=== PATIENT | female | born 1940 | race Caucasian/White ===

== ENCOUNTER 2018-07-10 13:49 | Emergency (ER) | payer MEDICARE ==
[2018-07-10] MEDS ORDERED: Aspirin 81 MG Tab.Chew PO ONE (14:11)
--- NOTE | 2018-07-10 14:16 | EDM.PDOC ---
ED HPI GENERAL MEDICAL PROBLEM - General Chief Complaint: General Stated Complaint: STROKE? Time Seen by Provider: 07/10/18 14:00 Source of Information: Reports: Patient, Family, Police History Limitations: Reports: No Limitations - History of Present Illness INITIAL COMMENTS - FREE TEXT/NARRATIVE: 78 yo female presents with her for several episodes of difficulty with speech and trouble walking. Speech problem is resolved on arrival, but still having some trouble with walking. Had a similar problem in and was seen in [facility] and her work up at that time was negative. Is on a baby aspirin daily which she already took today. Has been more tired today than usual, hasn't eaten. Just wants to go back to bed. Onset: Sudden Onset Date: 07/10/18 Duration: Intermittent, Waxing/Waning Quality: Reports: Other (no pain) Severity: Mild Improves with: Reports: Other (? time) Worsens with: Reports: Other (unknown) Context: Reports: Other (See HPI) Associated Symptoms: Reports: No Other Symptoms. 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: Other (see below) (none) - Related Data Allergies Allergy/AdvReac Type Severity Reaction Status Date / Time Sulfa (Sulfonamide Allergy Nausea Verified 07/10/18 14:08 Antibiotics) Home Meds: Home Meds Aspirin 81 mg PO DAILY 01/29/18 [History] Levothyroxine [Synthroid] 50 mcg PO DAILY 01/29/18 [History] Meclizine [Antivert] 25 mg PO Q6H PRN #30 tab 01/29/18 [Rx] Past Medical History Endocrine/Metabolic History: Reports: Hypoparathyroidism - Past Surgical History HEENT Surgical History: Reports: Tonsillectomy Female Surgical History: Reports: Hysterectomy Social & Family History - Tobacco Use Smoking Status *Q: Never Smoker Second Hand Smoke Exposure: No - Caffeine Use Caffeine Use: Reports: Tea - Recreational Drug Use Recreational Drug Use: No ED ROS GENERAL - Review of Systems Review Of Systems: See Below Constitutional: Reports: No Symptoms HEENT: Reports: No Symptoms Respiratory: Reports: No Symptoms Cardiovascular: Reports: No Symptoms GI/Abdominal: Reports: No Symptoms : Reports: No Symptoms Musculoskeletal: Reports: No Symptoms Skin: Reports: No Symptoms Neurological: Reports: Difficulty Walking, Change in Speech (hard to get the right words out at home, better now. About 3 separate episodes of this today.) ED EXAM, GENERAL - Physical Exam Exam: See Below Exam Limited By: No Limitations General Appearance: Alert, WD/WN, No Apparent Distress Eye Exam: Bilateral Eye: EOMI, Normal Inspection, PERRL Ears: Normal External Exam, Normal Canal, Hearing Grossly Normal, Normal TMs Ear Exam: Bilateral Ear: Auricle Normal, Canal Normal, TM normal Nose: Normal Inspection, Normal Mucosa, No Blood Throat/Mouth: Normal Inspection, Normal Lips, Normal Oropharynx, Normal Voice, No Airway Compromise Head: Atraumatic, Normocephalic Neck: Normal Inspection Respiratory/Chest: No Respiratory Distress, Lungs Clear, Normal Breath Sounds, No Accessory Muscle Use Cardiovascular: Regular Rate, Rhythm, No Edema GI/Abdominal: Normal Bowel Sounds, Soft, Non-Tender, No Distention Back Exam: Normal Inspection. No: CVA Tenderness (R), CVA Tenderness (L) Extremities: Normal Inspection, Normal Range of Motion, Non-Tender, No Pedal Edema Neurological: Alert, Oriented, CN II-XII Intact, Normal Cognition, No Motor/ Sensory Deficits. No: Confused Psychiatric: Normal Affect, Normal Mood Skin Exam: Warm, Dry, Intact, Normal Color, No Rash Course - Vital Signs Text/Narrative:: No return of sx's during her ER stay. Feeling fine. Wants to go home and follow up with neuro as outpatient. Last Recorded V/S: Last Vital Signs Temp 37.6 C 07/10/18 14:07 Pulse 76 07/10/18 16:26 Resp 16 07/10/18 16:26 BP 127/67 07/10/18 16:26 Pulse Ox 96 07/10/18 16:26 - Orders/Labs/Meds Orders: Active Orders 24 hr Category Date Time Status Cardiac Monitoring [RC] .As Directed Care 07/10/18 14:09 Active Labs: Laboratory Tests 07/10/18 07/10/18 07/10/18 Range/Units 14:22 14:22 14:32 WBC 7.7 (4.5-11.0) K/uL RBC 4.03 (3.30-5.50) M/uL Hgb 11.6 L (12.0-15.0) g/dL Hct 35.7 L (36.0-48.0) % MCV 89 (80-98) fL MCH 29 (27-31) pg MCHC 33 (32-36) % Plt Count 236 (150-400) K/uL Sodium 127 L (140-148) mmol/L Potassium 3.9 (3.6-5.2) mmol/L Chloride 94 L (100-108) mmol/L Carbon Dioxide 23 (21-32) mmol/L Anion Gap 13.9 (5.0-14.0) mmol/L BUN 17 (7-18) mg/dL Creatinine 1.0 (0.6-1.0) mg/dL Est Cr Clr Drug Dosing 37.73 mL/min Estimated GFR (MDRD) 53 L (>60) Glucose 121 H (74-106) mg/dL Calcium 9.1 (8.5-10.1) mg/dL Troponin I < 0.017 (0.000-0.056) ng/mL TSH, Ultra Sensitive 0.833 (0.358-3.740) uIU/mL Urine Color Yellow Urine Appearance Slightly cloudy Urine pH 6.0 (4.5-8.0) Ur Specific [place] 1.015 (1.008-1.030) Urine Protein Trace (NEGATIVE) mg/dL Urine Glucose (UA) Normal (NEGATIVE) mg/dL Urine Ketones Negative (NEGATIVE) mg/dL Urine Occult Blood Trace (NEGATIVE) Urine Nitrite Negative (NEGATIVE) Urine Bilirubin Negative (NEGATIVE) Urine Urobilinogen Normal (NORMAL) mg/dL Ur Leukocyte Esterase Trace (NEGATIVE) Urine RBC 0-5 (0-5) Urine WBC 0-5 (0-5) Ur Epithelial Cells Few Amorphous Sediment Not seen Urine Bacteria Moderate Urine Mucus Not seen Meds: Medications Discontinued Medications Generic Name Dose Route Start Last Admin Trade Name Freq PRN Reason Stop Dose Admin Aspirin 243 mg 07/10/18 14:11 07/10/18 14:16 Aspirin PO 07/10/18 14:12 243 mg ONETIME ONE Administration Sodium Chloride 500 mls @ 1,000 mls/hr 07/10/18 15:11 07/10/18 15:23 Normal Saline IV 07/10/18 15:40 1,000 mls/hr .BOLUS ONE Administration Sodium Chloride 500 mls @ 1,000 mls/hr 07/10/18 15:58 07/10/18 16:11 Normal Saline IV 07/10/18 16:27 1,000 mls/hr .BOLUS ONE Administration - Radiology Interpretation Free Text/Narrative:: head CT-Neg. CT Results Date: 07/10/18 Departure - Departure Time of Disposition: 16:28 Disposition: Home, Self-Care 01 Condition: Fair Clinical Impression: TIA (transient ischemic attack), Hyponatremia - Discharge Information *PRESCRIPTION DRUG MONITORING PROGRAM REVIEWED*: No *COPY OF PRESCRIPTION DRUG MONITORING REPORT IN PATIENT COLT: No Instructions: Transient Ischemic Attack, [id number] Referrals: Larissa Solitario PA [Primary Care Provider] - Forms: ED Department Discharge Additional Instructions: Increase your aspirin to 325 mg daily with a meal. Decrease your daily water intake slightly. F/U with neurology as soon as you can get scheduled. Return here promptly if your problem recurs. - My Orders Last 24 Hours: My Active Orders 07/10/18 14:09 Cardiac Monitoring [RC] .As Directed - Assessment/Plan Last 24 Hours: My Active Orders 07/10/18 14:09 Cardiac Monitoring [RC] .As Directed
[2018-07-10] MEDS ORDERED: Sodium Chloride 0.9% 500 ML IV ONE ×2 (15:11→15:58)
--- NOTE | 2018-07-10 15:11 | CRLCT ---
INDICATION: Difficulty with speech, poor balance TECHNIQUE: CT Head without contrast. COMPARISON: None FINDINGS: Ventricles and sulci are normal in size and configuration. No extra axial collection. No intracranial hemorrhage. No mass effect or edema. There are basal ganglia calcifications. No CT evidence of acute, large territorial infarction. Vascular calcifications of the skullbase. Visualized paranasal sinuses and mastoid air cells are well aerated. Calvarium is unremarkable. IMPRESSION: 1. No intracranial hemorrhage or mass effect. 2. No CT evidence of acute, large territorial infarction. There is clinical concern for stroke, please note that MRI is more sensitive. Dictated by Samia Wiggins MD @ 07/10/2018 3:09:24 PM Please note that all CT scans at this facility use dose modulation, iterative reconstruction, and/or weight-based dosing when appropriate to reduce radiation dose to as low as reasonably achievable. Dictated by: Samia Wiggins MD @ 07/10/2018 15:09:32 (Electronically Signed)
== END 2018-07-10 16:41 | disposition home or self-care (01) ==
LOC: JP.ED 13:49
DX: G45.9 Transient cerebral ischemic attack, unspecified (principal); E87.1 Hypo-osmolality and hyponatremia; Z88.2 Allergy status to sulfonamides
CPT/HCPCS: 36415; 70450; 80048; 81001; 84443; 84484; 85027; 96360; 99285; A9270; J7040; 99284

== ENCOUNTER 2019-10-31 05:39 | Emergency (ER) | payer MEDICARE ==
[2019-10-31] MEDS ORDERED: Aspirin 81 MG Tab.Chew PO ONE (05:57)
[2019-10-31] MEDS ORDERED: LORazepam 1 MG Tab PO ONE (05:59)
--- NOTE | 2019-10-31 06:04 | EDM.PDOC ---
ED HPI GENERAL MEDICAL PROBLEM - General Chief Complaint: Chest Pain Stated Complaint: CHEST PAIN Time Seen by Provider: 10/31/19 05:57 Source of Information: Reports: Patient, Family, RN Notes Reviewed History Limitations: Reports: No Limitations - History of Present Illness INITIAL COMMENTS - FREE TEXT/NARRATIVE: 79-year-old female presents emergency department a complaint of chest pain, she has had chest pain now for a week comes and goes she describes it as sharp stabbing zingers in the left breast they will occur multiple times throughout the day she had a couple early this morning decided to come to the emergency department to get it checked out. She has no nausea no vomiting no shortness of breath no diaphoresis she does have a strong family history of coronary artery disease no tobacco use denies pain Pain Score (Numeric/FACES): 0 - Related Data Allergies Allergy/AdvReac Type Severity Reaction Status Date / Time Sulfa (Sulfonamide Allergy Nausea Verified 10/31/19 05:46 Antibiotics) Home Meds: Home Meds Aspirin 81 mg PO DAILY 01/29/18 [History] Levothyroxine [Synthroid] 50 mcg PO DAILY 01/29/18 [History] Meclizine [Antivert] 25 mg PO Q6H PRN #30 tab 01/29/18 [Rx] Levothyroxine 75 mcg PO ASDIRECTED 10/31/19 [History] Past Medical History HEENT History: Reports: 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: Endocrine/Metabolic History: Reports: Hypoparathyroidism - Infectious Disease History Infectious Disease History: Reports: Chicken Pox, Measles - Past Surgical History HEENT Surgical History: Reports: Tonsillectomy Female Surgical History: Reports: Hysterectomy Social & Family History - Caffeine Use Caffeine Use: Reports: Tea ED ROS GENERAL - Review of Systems Review Of Systems: See Below Constitutional: Reports: No Symptoms HEENT: Reports: No Symptoms Respiratory: Reports: No Symptoms Cardiovascular: Reports: Chest Pain GI/Abdominal: Reports: No Symptoms : Reports: No Symptoms Musculoskeletal: Reports: No Symptoms Skin: Reports: No Symptoms Neurological: Reports: No Symptoms ED EXAM, GENERAL - Physical Exam Exam: See Below Exam Limited By: No Limitations General Appearance: Alert, WD/WN, No Apparent Distress Neck: Normal Inspection, Supple, Non-Tender, Full Range of Motion Respiratory/Chest: No Respiratory Distress, Lungs Clear, Normal Breath Sounds, No Accessory Muscle Use, Chest Non-Tender Cardiovascular: Regular Rate, Rhythm, No Murmur GI/Abdominal: Soft, Non-Tender Extremities: No Pedal Edema Course - Vital Signs Last Recorded V/S: Last Vital Signs Temp 98.0 F 10/31/19 05:51 Pulse 67 10/31/19 05:51 Resp 16 10/31/19 05:51 BP 202/96 H 10/31/19 05:51 Pulse Ox 99 10/31/19 05:51 - Orders/Labs/Meds Orders: Active Orders 24 hr Category Date Time Status Cardiac Monitoring [RC] .As Directed Care 10/31/19 05:58 Active EKG Documentation Completion [RC] ASDIRECTED Care 10/31/19 05:59 Active Chest 1V Frontal [CR] Stat Exams 10/31/19 05:58 Taken EKG 12 Lead [EK] Stat Ther 10/31/19 05:58 Ordered Labs: Laboratory Tests 10/31/19 10/31/19 Range/Units 06:05 06:05 WBC 3.6 L (4.5-11.0) K/uL RBC 4.20 (3.30-5.50) M/uL Hgb 12.3 (12.0-15.0) g/dL Hct 36.7 (36.0-48.0) % MCV 87 (80-98) fL MCH 29 (27-31) pg MCHC 34 (32-36) % Plt Count 236 (150-400) K/uL Neut % (Auto) 40 (36-66) % Lymph % (Auto) 38 (24-44) % [place] % (Auto) 16 H (2-6) % Eos % (Auto) 6 H (2-4) % Baso % (Auto) 1 (0-1) % Sodium 133 L (140-148) mmol/L Potassium 4.3 (3.6-5.2) mmol/L Chloride 99 L (100-108) mmol/L Carbon Dioxide 26 (21-32) mmol/L Anion Gap 12.3 (5.0-14.0) mmol/L BUN 10 (7-18) mg/dL Creatinine 0.8 (0.6-1.0) mg/dL Est Cr Clr Drug Dosing 46.40 mL/min Estimated GFR (MDRD) > 60 (>60) Glucose 96 (74-106) mg/dL Calcium 8.9 (8.5-10.1) mg/dL Total Bilirubin 0.4 (0.2-1.0) mg/dL AST 26 (15-37) U/L ALT 28 (12-78) U/L Alkaline Phosphatase 63 (46-116) U/L Troponin I 0.017 (0.000-0.056) ng/mL Total Protein 6.7 (6.4-8.2) g/dL Albumin 3.5 (3.4-5.0) g/dL Globulin 3.2 (2.3-3.5) g/dL Albumin/Globulin Ratio 1.1 L (1.2-2.2) Meds: Medications Discontinued Medications Generic Name Dose Route Start Last Admin Trade Name Freq PRN Reason Stop Dose Admin Aspirin 324 mg 10/31/19 05:57 10/31/19 06:11 Aspirin PO 10/31/19 05:58 324 mg ONETIME ONE Administration Lorazepam 1 mg 10/31/19 05:59 10/31/19 06:12 Ativan PO 10/31/19 06:00 1 mg ONETIME ONE Administration Departure - Departure Time of Disposition: 07:00 Disposition: Home, Self-Care 01 Condition: Fair Clinical Impression: Atypical chest pain Instructions: Nonspecific Chest Pain, Adult Referrals: Larissa Solitario PA [Primary Care Provider] - Forms: ED Department Discharge Additional Instructions: Please follow-up with your primary care this week for further evaluation Sepsis Event Note (ED) - Evaluation Sepsis Screening Result: No Definite Risk - Focused Exam Vital Signs: Vital Signs Temp Pulse Resp BP Pulse Ox 10/31/19 05:51 98.0 F 67 16 202/96 H 99 10/31/19 05:49 98.0 F 67 16 202/96 H 99 - My Orders Last 24 Hours: My Active Orders 10/31/19 05:58 Cardiac Monitoring [RC] .As Directed Chest 1V Frontal [CR] Stat EKG 12 Lead [EK] Stat 10/31/19 05:59 EKG Documentation Completion [RC] ASDIRECTED - Assessment/Plan Last 24 Hours: My Active Orders 10/31/19 05:58 Cardiac Monitoring [RC] .As Directed Chest 1V Frontal [CR] Stat EKG 12 Lead [EK] Stat 10/31/19 05:59 EKG Documentation Completion [RC] ASDIRECTED Plan: Assessment Acuity = acute Site and laterality = atypical chest pain Etiology = unknown Manifestations = none Location of injury = Home Lab values = CBC, CMP, troponin all within normal limits EKG demonstrates normal sinus rhythm chest x-ray I did review films myself I cannot appreciate any acute process, the official read from radiology is pending Plan I did review lab results and chest x-ray with her she remained chest pain-free while in the emergency department will have follow-up with her primary care this week for further evaluation This note was dictated using [employer] voice recognition software please call with any questions on syntax or grammar.
--- NOTE | 2019-10-31 11:44 | CR ---
CHEST: Portable 10/31/2019 at 6:29 AM CLINICAL HISTORY:Chest pain COMPARISON:None FINDINGS: The heart size, pulmonary vascularity and hilar structures are normal. No infiltrate effusion or pneumothorax is seen. There are atherosclerotic changes in the aorta. IMPRESSION: No acute cardiopulmonary process.
== END 2019-10-31 07:26 | disposition home or self-care (01) ==
LOC: JP.ED 05:39
DX: R07.89 Other chest pain (principal); E20.9 Hypoparathyroidism, unspecified; Z88.2 Allergy status to sulfonamides; Z79.82 Long term (current) use of aspirin; Z79.899 Other long term (current) drug therapy
CPT/HCPCS: 36415; 71045; 80053; 84484; 85025; 93005; 99285; A9270; 93010

== ENCOUNTER 2020-02-09 07:12 | Day surgery (SDC) | payer MEDICARE ==
[~2020-02-09 07:12] MED LIST: Sodium Chloride 0.9% 1,000 ML IV SCH
[2020-02-09] MEDS ORDERED: Propofol 200 MG/20 ML SDV ONE (07:21)
[2020-02-09] MEDS ORDERED: fentaNYL 100 MCG/2 ML SDV ONE (07:21)
--- NOTE | 2020-02-10 03:29 | PROC ---
DATE OF PROCEDURE: 02/09/2020 SURGEON: Byron Carrasco MD INDICATIONS: Kenia is an 80-year-old female who had a positive Cologuard test, comes in for a screening colonoscopy. The risks and benefits were explained to the patient. PROCEDURE IN DETAIL: Anesthesia was given by nurse tear down man. Olympus 180L scope was used. The tube was placed into the rectum after examination of the rectum with a gloved finger, which was unremarkable. The tube was advanced and did get to the cecum with external pressure. Upon retraction of the tube, noted no lesions or ulceration, no abnormality. No diverticula throughout the entire colon. Rectal evaluation was unremarkable as well. The tube was removed. The patient tolerated the procedure well. PREOPERATIVE DIAGNOSIS: Positive Cologuard test. POSTOPERATIVE DIAGNOSIS: Normal colon from cecum to the rectum. Byron Carrasco MD /[id number]
== END 2020-02-09 10:45 | disposition home or self-care (01) ==
LOC: JP.SDS 07:12
PROVIDERS: ATTEND Internal Medicine
DX: R19.5 Other fecal abnormalities (principal); Z88.2 Allergy status to sulfonamides; Z88.5 Allergy status to narcotic agent; Z88.8 Allergy status to other drugs, medicaments and biological substances
CPT/HCPCS: J2704; J3010; J7030

== ENCOUNTER 2021-02-07 08:36 | Day surgery (SDC) | payer MEDICARE ==
[~2021-02-07 08:36] MED LIST changes: -Sodium Chloride 0.9% 1,000 ML IV SCH; +Sodium Chloride 0.9% 10 ML Syringe FLUSH PRN
[2021-02-07] MEDS ORDERED: Labetalol 20 MG/4 ML Syringe ONE (09:12)
[2021-02-07] MEDS ORDERED: Sodium Chloride 0.9% 10 ML ONE (09:12)
--- NOTE | 2021-02-07 10:01 | OR ---
DATE OF PROCEDURE: 02/07/2021 SURGEON: Colleen Joseph MD POSTOPERATIVE CARE: Postoperative care will be provided mainly at the [address] [place] [address] [facility] in conjunction with [facility]. PREOPERATIVE DIAGNOSIS: Cataract, right eye. POSTOPERATIVE DIAGNOSIS: Cataract, right eye. PROCEDURE: Phacoemulsification with intraocular lens placement, right eye. ANESTHESIA: Topical and intracameral. ESTIMATED BLOOD LOSS: Minimal. COMPLICATIONS: None. PATHOLOGY SPECIMENS: None. SURGICAL FINDINGS: None. INDICATION FOR PROCEDURE: The patient is an 81-year-old female with history of a visually significant cataract in the right eye, which interfered with activities of daily living. This consisted of a nuclear sclerosis cataract. Following careful discussion of the risks, benefits and alternatives to cataract extraction with intraocular lens placement including blindness and , the patient elected to proceed, and informed, written consent was obtained prior to the procedure. DESCRIPTION OF THE PROCEDURE: The patient was previously identified, and a radha placed above the right eye. All sources, including the patient, indicated that the right eye was the correct eye. The patient was subsequently taken to the operating room where standard monitors were applied. The patient was then prepped and draped in the usual sterile fashion for ophthalmic surgery. Attention was first directed at the 12 o'clock position where a paracentesis port was fashioned. Shugar solution followed by Viscoat was instilled into the eye. Attention was then directed to the 8:30 position where a triplanar incision was made in a near-clear manner using a keratome. A continuous capsulorrhexis was then made using a combination of the cystotome and Utrata forceps. Hydrodissection was achieved using a balanced salt solution, and the lens rotated nicely. Phacoemulsification was then done using a modified [id number]-[id number] technique without complication. Phaco time was 8.02 CDE. The remaining cortex was removed using the irrigation/aspiration handpiece. Provisc was then instilled into the eye. A Technis lens, model DIB00, at 21.0 diopters was then placed in the capsular bag using an [place] injector. The remaining viscoelastic was removed using the irrigation/aspiration forceps. All wounds were then checked and found to be watertight. The lid speculum and drapes were removed. Maxitrol ointment was placed in the patient's right eye, and the eye was shielded. The patient tolerated the procedure well. The patient was instructed to follow up tomorrow. All needle and sponge counts were correct at the end of the procedure. There are no surgical findings. Colleen Joseph MD /[id number]
== END 2021-02-07 09:45 | disposition home or self-care (01) ==
LOC: JP.SDS 08:36
PROVIDERS: ATTEND Ophthalmology
DX: H26.9 Unspecified cataract (principal); I10 Essential (primary) hypertension; K21.9 Gastro-esophageal reflux disease without esophagitis; E03.9 Hypothyroidism, unspecified
CPT/HCPCS: 66984; J3490; V2632

== ENCOUNTER 2021-02-21 06:27 | Day surgery (SDC) | payer MEDICARE ==
[2021-02-21] MEDS ORDERED: Sodium Chloride 0.9% 10 ML Syringe FLUSH PRN (07:00)
--- NOTE | 2021-02-21 10:53 | OR ---
DATE OF PROCEDURE: 02/21/2021 SURGEON: Colleen Joseph MD POSTOPERATIVE CARE: Postoperative care will be provided mainly at the [address] [place] [address] [facility] in conjunction with [facility]. PREOPERATIVE DIAGNOSIS: Cataract, left eye. POSTOPERATIVE DIAGNOSIS: Cataract, left eye. PROCEDURE: Phacoemulsification with intraocular lens placement, left eye. ANESTHESIA: Topical and intracameral. ESTIMATED BLOOD LOSS: Minimal. COMPLICATIONS: None. PATHOLOGY SPECIMENS: None. SURGICAL FINDINGS: None. INDICATION FOR PROCEDURE: The patient is an 81-year-old female with history of a visually significant cataract in the left eye, which interfered with activities of daily living. This consisted of a nuclear sclerosis cataract. Following careful discussion of the risks, benefits and alternatives to cataract extraction with intraocular lens placement including blindness and , the patient elected to proceed, and informed, written consent was obtained prior to the procedure. DESCRIPTION OF THE PROCEDURE: The patient was previously identified, and a radha placed above the left eye. All sources, including the patient, indicated that the left eye was the correct eye. The patient was subsequently taken to the operating room where standard monitors were applied. The patient was then prepped and draped in the usual sterile fashion for ophthalmic surgery. Attention was first directed at the 12 o'clock position where a paracentesis port was fashioned. Shugar solution followed by Viscoat was instilled into the eye. Attention was then directed to the 8:30 position where a triplanar incision was made in a near-clear manner using a keratome. A continuous capsulorrhexis was then made using a combination of the cystotome and Utrata forceps. Hydrodissection was achieved using a balanced salt solution, and the lens rotated nicely. Phacoemulsification was then done using a modified [id number]-njufsld technique without complication. Phaco time was 8.11 CDE. The remaining cortex was removed using the irrigation/aspiration handpiece. Provisc was then instilled into the eye. A Technis lens, model DIB00, at 21.5 diopters was then placed in the capsular bag using an Rafael Gonzalez injector. The remaining viscoelastic was removed using the irrigation/aspiration forceps. All wounds were then checked and found to be watertight. The lid speculum and drapes were removed. Maxitrol ointment was placed in the patient's left eye, and the eye was shielded. The patient tolerated the procedure well. The patient was instructed to follow up tomorrow. All needle and sponge counts were correct at the end of the procedure. There were surgical findings. Colleen Joseph MD /[id number]
== END 2021-02-21 07:59 | disposition home or self-care (01) ==
LOC: JP.SDS 06:27
PROVIDERS: ATTEND Ophthalmology
DX: H25.12 Age-related nuclear cataract, left eye (principal); K21.9 Gastro-esophageal reflux disease without esophagitis; Z86.73 Personal history of transient ischemic attack (TIA), and cerebral infarction without residual deficits; Z88.2 Allergy status to sulfonamides
CPT/HCPCS: V2632

== ENCOUNTER 2021-09-16 09:07 | Emergency (ER) | payer MEDICARE ==
[2021-09-16 10:13] LABS: TROPONIN I HIGH SENSITIVITY 7.3 pg/mL (<=60.3)
== END 2021-09-16 12:08 | disposition home or self-care (01) ==
LOC: JP.ED 09:07
DX: R55 Syncope and collapse (principal); E78.00 Pure hypercholesterolemia, unspecified; K21.9 Gastro-esophageal reflux disease without esophagitis; Z86.73 Personal history of transient ischemic attack (TIA), and cerebral infarction without residual deficits; Z88.2 Allergy status to sulfonamides; Z88.8 Allergy status to other drugs, medicaments and biological substances; Z79.899 Other long term (current) drug therapy; Z86.16 Personal history of COVID-19
CPT/HCPCS: 36415; 71045; 71045-26; 80048; 81001; 84484; 85025; 85379; 93005; 93010; 99283; 99284-25